=== PATIENT | male | born 1975 | race Caucasian/White ===

== ENCOUNTER 2022-03-18 01:26 | Emergency (ER) | payer BC ==
[2022-03-18 02:08] LABS: HEMOGLOBIN 13.7 gm/dl (14.0-17.5); RED BLOOD COUNT 4.54 M/UL (4.20-5.50)
[2022-03-18 02:30] LABS: BUN/CREATININE RATIO 18 (0-10)
[2022-03-18] MEDS ORDERED: ZOFRAN ODT 4 MG4 MG SL (05:56)
[2022-03-18] MEDS ORDERED: HYDROCODON-ACE1 EAC4 PO (05:56)
[2022-03-18] MEDS ORDERED: FLOMAX 0.4 MG0.4 MG PO (05:56)
[2022-03-19] MEDS ORDERED: TORADOL 10 MG T10 MG PO (15:48)
== END 2022-03-18 06:15 | disposition home or self-care (01) ==
LOC: ER1 01:26
PROVIDERS: Physician Assistant
DX: N13.2 Hydronephrosis with renal and ureteral calculous obstruction (principal)
CPT/HCPCS: 80053; 81001; 82150; 83690; 85025; 87086; 96374; 96375; 96376; 99284; J1885; J2270; J2405; Q9967

== ENCOUNTER 2022-03-19 14:06 | Emergency (ER) | payer BC ==
[~2022-03-19 14:06] MED LIST: FLOMAX 0.4 MG0.4 MG PO; HYDROCODON-ACE1 EAC4 PO; ZOFRAN ODT 4 MG4 MG SL
[2022-03-19] MEDS ORDERED: TORADOL 10 MG T10 MG PO (15:48)
== END 2022-03-19 16:05 | disposition home or self-care (01) ==
LOC: ER1 14:06
DX: R14.3 Flatulence (principal)
CPT/HCPCS: 74018; 96372; 99284; J1885